=== PATIENT | female | born 1965 | race Caucasian/White ===

== ENCOUNTER 2025-02-28 19:04 | Emergency (ER) | payer MEDICAID, SELFPAY ==
[2025-02-28 19:06] VITALS: BMI 26.2
[2025-02-28 19:37] VITALS: BP 150/91; PULSE 77; RESP 16; TEMP 36.6; O2SAT 96
--- NOTE | 2025-02-28 19:54 | PD.EDBACK ---
ED Back Injury Pain RME/HPI General Chief Complaint: Back Pain/Injury Stated Complaint: CHRONIC BACK PAIN Time Seen by Provider: 02/28/25 19:48 Arrival date/time: 02/28/25 19:04 59F with history of chronic back pain due to OA presents to ED needing med refill. Patient tried to see her doctor, but he is on vacation. Patient takes [place] 10/325 BID. Related Data Home Medications ?Medication ?Instructions ?Recorded ?Confirmed Hydrocodone/Acetaminophen * (NORCO 1 tab PO Q6H PRN PAIN #0 tabs 09/04/14 10/325 *) ibuprofen 600 mg tablet 600 mg PO Q8HR PRN PAIN #0 tabs 09/04/14 loratadine 10 mg tablet (Claritin) 10 mg PO QDAY #0 tabs 09/04/14 lorazepam 1 mg tablet 1 mg PO Anxiety #0 tabs 09/04/14 Previous Rx's ?Medication ?Instructions ?Recorded alprazolam 0.5 mg tablet (Xanax) 0.5 mg PO QHSPRN PRN anxiety #10 10/05/18 tabs loratadine 10 mg tablet (Claritin) 10 mg PO QDAY PRN allergy symptoms 10/05/18 #30 tabs venlafaxine 75 mg capsule,extended 75 mg PO QDAY #30 caps 10/05/18 release 24 hr hydrocodone 10 mg-acetaminophen 1 tab PO BID PRN pain #7 tabs 02/28/25 325 mg tablet Allergies Allergy/AdvReac Type Severity Reaction Status Date / Time NKA* Allergy Uncoded 02/28/25 19:10 Review of Systems Review of Systems Systems Reviewed: All systems reviewed, normal except as documented Constitutional Constitutional: Reports system reviewed and no additional complaints, except as documented, Denies fever(s) and Denies headache(s) ENT Ears, Nose, Mouth, and Throat: Denies disequilibrium and Denies headache(s) Cardiovascular Cardiovascular: Reports system reviewed and no additional complaints, except as documented, Denies chest pain and Denies dyspnea Respiratory Respiratory: Reports system reviewed and no additional complaints, except as documented, Denies cough and Denies dyspnea Gastrointestinal Gastrointestinal: Reports system reviewed and no additional complaints, except as documented, Denies abdominal pain, Denies nausea and Denies vomiting Musculoskeletal Musculoskeletal: Reports as per HPI and Reports back pain Neurologic Neurologic: Reports system reviewed and no additional complaints, except as documented, Denies confusion, Denies disequilibrium and Denies headache(s) Psychiatric Psychiatric: Denies confusion Past Medical History Social History SMOKING STATUS: Never smoker ED Exam General General appearance: Present alert and in no apparent distress Head Head exam: Present atraumatic Eye Eye exam: Present normal appearance, PERRL and EOMI ENT ENT exam: Present normal exam, normal oropharynx and mucous membranes moist Neck Neck exam: Present normal inspection, full ROM and trachea midline Chest Chest inspection: Present normal inspection and symmetric chest wall rise Respiratory Respiratory exam: Present normal lung sounds bilaterally Cardiovascular Cardiovascular exam: Present regular rate, normal rhythm and normal heart sounds Abdominal Exam Abdominal exam: Present soft and normal bowel sounds Extremities Exam Extremities exam: Present normal inspection and full ROM Back Exam Back exam: Present normal inspection and full ROM Neurological Exam Neurological exam: Present alert, oriented X3 and CN II-XII intact Psychiatric Psychiatric exam: Present normal affect and normal mood Skin Skin exam: Present warm, dry, intact and normal color Course Quality Measures none Orders Category Date Time Status HYDROcodone/APAP 10/325 [[place] 10/325] Med 02/28/25 19:48 Discontinued 1 tab PO X1 ONE Vital Signs Vital signs: Vital Signs Temperature 98 F 02/28/25 19:37 Pulse Rate 77 02/28/25 19:37 Respiratory Rate 16 02/28/25 19:37 Blood Pressure 150/91 H 02/28/25 19:37 Pulse Oximetry (%) 96 02/28/25 19:37 Oxygen Delivery Method Room Air 02/28/25 19:37 O2 at 96% on RA and WNLs Back Pain / Injury MDM Narrative MDM Narrative:: 59F with history of chronic back pain due to OA presents to ED needing med refill. Patient tried to see her doctor, but he is on vacation. Patient takes [place] 10/325 BID. Physical exam reveals well-appearing female. Gait normal. Speech normal. Patient is afebrile, calm, and alert. Chart review shows on previous ED visit for this, as well as multiple PT sessions. Meds and public relations counselor given. Will give short supply until Tuesday. Patient data External records reviewed:: [facility] previous records Clinical information provided by:: patient Social determinants that could affect healthcare access:: none Patient has the following chronic illnesses:: chronic back pain How is presenting disease/condition affected by chronic disease/condition?: caused by Evaluation data The following diagnostics were reviewed and interpreted by me:: other (specify) (none) Lab and/or radiology exams considered but not ordered:: not ordered Interpretation Summary: n/a Medications / Prescriptions Medications or Prescriptions considered but not ordered:: ordered Medication administrations:: Medication Administration History Discontinued Medications Hydrocodone Bitart/Acetaminophen (Hydrocodone/[place] 10/325 Tab) 1 tab PO X1 ONE Stop: 02/28/25 19:49 above Consultations Consultation(s) initiated? (list below): No Diagnosis Differential diagnosis back pain/injury: lumbar radiculopathy, sciatica, strain of lumbar region, renal colic, pyelonephritis, thoracic back pain, AAA, discitis and other (chronic back pain) Most likely diagnosis given after review of the tests above:: chronic back pain Admission Indicated Admission indicated?: not indicated Admission Request Was there a request for admission?: No Disposition Plan Disposition Plan: Discharge Discharge Attestation Discharge Attestation: The patient and all family members were given an opportunity to ask questions and understood the discharge instructions. Discharge instructions specifically effects, indications for sooner follow up or return to the emergency department, and the expected course of current diagnosis. Patient condition: Stable Discharge Plan Plan Patient Disposition: HOME (Self Care) Discharge Disposition comment: Stable Prescriptions/Referrals Prescriptions/Med Rec: New hydrocodone-acetaminophen 10-325 mg tablet 1 tab PO BID MDD 2 PRN (Reason: pain) Qty: 7 0RF No Action lorazepam 1 MG tablet 1 mg PO Qty: 0 ibuprofen 600 MG tablet 600 mg PO Q8HR PRN (Reason: PAIN) Qty: 0 loratadine [Claritin] 10 MG tablet 10 mg PO QDAY Qty: 0 Hydrocodone/Acetaminophen * ([place] 10/325 *) 1 TAB tablet 1 tab PO Q6H PRN (Reason: PAIN) Qty: 0 loratadine [Claritin] 10 mg tablet 10 mg PO QDAY PRN (Reason: allergy symptoms) Qty: 30 0RF venlafaxine 75 mg capsule,extended release 24hr 75 mg PO QDAY Qty: 30 0RF alprazolam [Xanax] 0.5 mg tablet 0.5 mg PO QHSPRN PRN (Reason: anxiety) Qty: 10 0RF Problem List Clinical Impression: Chronic back pain, Medication refill Patient/Caregiver Discharge Instructions Education Materials: ED Back Pain (Acute or Chronic) Additional Instructions: Please follow-up with PCP within 24-48 hours and return immediately if symptoms worsen. Print Language: Maltese Stand Alone Forms: Patient Portal Info Letter JACKSON/JENNIFER Supervising Physician JACKSON/JENNIFER Supervising Physician: Dr. Cool
== END 2025-02-28 20:19 | disposition home or self-care (01) ==
LOC: SERX 20:13
PROVIDERS: Emergency Provider Emergency Medicine
DX: Z76.0 Encounter for issue of repeat prescription (principal); M47.819 Spondylosis without myelopathy or radiculopathy, site unspecified
CPT/HCPCS: 99282; A9270

== ENCOUNTER 2025-03-04 18:18 | Emergency (ER) | payer MEDICAID, SELFPAY ==
[2025-03-04 18:18] VITALS: BMI 26.2
[2025-03-04 18:31] VITALS: BP 140/82; PULSE 80; RESP 18; TEMP 36.6; O2SAT 98
--- NOTE | 2025-03-04 18:48 | EDNOTE_ITS ---
ED General RME/HPI General Chief complaint: General Adult/Misc Complain Stated complaint: JOSES DOMENICA PRESCRIPTION Time Seen by Provider: 03/04/25 18:45 Arrival date/time: 03/04/25 18:18 This is a case of 59-year-old female with history of chronic low back pain came in in the emergency room for medication refill of the [place] patient will see his primary care physician this week for further evaluation of her chronic low back pain patient denies any numbness weakness tingling sensation or incontinence to urine or stool denies any pain on both lower extremities Related Data Home Medications ?Medication ?Instructions ?Recorded ?Confirmed Hydrocodone/Acetaminophen * ([place] 1 tab PO Q6H PRN PA IN #0 tabs 09/04/14 10/325 *) ibuprofen 600 mg tablet 600 mg PO Q8HR PRN PAIN #0 t abs 09/04/14 loratadine 10 mg tablet (Claritin) 10 mg PO QDAY #0 ta bs 09/04/14 lorazepam 1 mg tablet 1 mg PO Anxiety #0 tabs 10/16 Previous Rx's ?Medication ?Instructions ?Recorded alprazolam 0.5 mg tablet (Xanax) 0.5 mg PO QHSPRN PRN anxiety #10 10/05/18 tabs loratadine 10 mg tablet (Claritin) 10 mg PO QDAY PRN a llergy symptoms 10/05/18 #30 tabs venlafaxine 75 mg capsule,extended 75 mg PO QDAY #30 c aps 10/05/18 release 24 hr hydrocodone 10 mg-acetaminophen 1 tab PO BID PRN pain #7 tabs 02/28/25 325 mg tablet hydrocodone 5 mg-acetaminophen 325 1 tab PO Q6H PRN pa in #8 tabs 03/04/25 mg tablet Allergies Allergy/AdvReac Type Severity Reaction Status Date / Time No Known Allergies Allergy Verified 03/04/25 18:20 Course Vital Signs Vital signs: Vital Signs Temperature 98 F 03/04/25 18:31 Pulse Rate 80 03/04/25 18:31 Respiratory Rate 18 03/04/25 18:31 Blood Pressure 140/82 H 03/04/25 18:31 Pulse Oximetry (%) 98 03/04/25 18:31 Oxygen Delivery Method Room Air 03/04/25 18:31 Discharge Plan Plan Patient Disposition: HOME (Self Care) Patient condition on transfer: Stable Prescriptions/Referrals Prescriptions/Med Rec: New hydrocodone-acetaminophen 5-325 mg tablet 1 tab PO Q6H MDD max 4 tabs per day PRN (Reason: pain) Qty: 8 0RF No Action lorazepam 1 MG tablet 1 mg PO Qty: 0 ibuprofen 600 MG tablet 600 mg PO Q8HR PRN (Reason: PAIN) Qty: 0 loratadine [Claritin] 10 MG tablet 10 mg PO QDAY Qty: 0 Hydrocodone/Acetaminophen * ([place] 10/325 *) 1 TAB tablet 1 tab PO Q6H PRN (Reason: PAIN) Qty: 0 loratadine [Claritin] 10 mg tablet 10 mg PO QDAY PRN (Reason: allergy symptoms) Qty: 30 0RF venlafaxine 75 mg capsule,extended release 24hr 75 mg PO QDAY Qty: 30 0RF alprazolam [Xanax] 0.5 mg tablet 0.5 mg PO QHSPRN PRN (Reason: anxiety) Qty: 10 0RF hydrocodone-acetaminophen 10-325 mg tablet 1 tab PO BID MDD 2 PRN (Reason: pain) Qty: 7 0RF Problem List Clinical Impression: Medication refill, Chronic bilateral low back pain Patient/Caregiver Discharge Instructions Education Materials: ED Back Pain (Acute or Chronic), ED Chronic Pain Additional Instructions: Follow-up with your primary care physician in 2 days for reevaluation and to be referred to neurosurgeon for chronic low back pain and to be referred to pain management doctor for pain control recurrence persistent worsening symptoms or any emergent concerns such as numbness weakness tingling sensation incontinence to urine or stool call 911 or go to the nearest emergency room take your medication as directed ice pack and warm compress as needed for pain Print Language: Mongolian Stand Alone Forms: Annabella Award Info., Patient Portal Info Letter PA/WAREHOUSE DISTRIBUTION SPECIALIST Supervising Physician PA/WAREHOUSE DISTRIBUTION SPECIALIST Supervising Physician: dr owens
[2025-03-04] MEDS: HYDROcodone/APAP 5/325 TABLET 1 TAB PO (18:54)
== END 2025-03-04 19:19 | disposition home or self-care (01) ==
LOC: SERX 18:56
PROVIDERS: Emergency Provider Emergency Medicine
DX: Z76.0 Encounter for issue of repeat prescription (principal); M54.50 Low back pain, unspecified; G89.29 Other chronic pain
CPT/HCPCS: 99283; A9270

== ENCOUNTER 2025-03-08 18:49 | Emergency (ER) | payer MEDICAID, SELFPAY ==
[2025-03-08 20:10] VITALS: BP 130/81; PULSE 77; RESP 18; TEMP 36.6; O2SAT 95; BMI 26.2
--- NOTE | 2025-03-08 22:39 | EDNOTE_ITS ---
ED Recheck Abnl Lab Rx-RME/HPI General Chief Complaint: General Adult/Misc Complain Stated Complaint: MED REFILL FOR [place] Time Seen by Provider: 03/08/25 20:30 Arrival date/time: 03/08/25 18:49 59F with history of chronic back pain due to OA presents to ED needing med refill. Patient tried to see her doctor, but he is on vacation. Patient takes [place] 10/325 BID. This patient's 3rd trip for this recently. Limitations: no limitations Related Data Home Medications ?Medication ?Instructions ?Recorded ?Confirmed Hydrocodone/Acetaminophen * ([place] 1 tab PO Q6H PRN PA IN #0 tabs 09/04/14 10/325 *) ibuprofen 600 mg tablet 600 mg PO Q8HR PRN PAIN #0 t abs 09/04/14 loratadine 10 mg tablet (Claritin) 10 mg PO QDAY #0 ta bs 09/04/14 lorazepam 1 mg tablet 1 mg PO Anxiety #0 tabs 10/16 Previous Rx's ?Medication ?Instructions ?Recorded alprazolam 0.5 mg tablet (Xanax) 0.5 mg PO QHSPRN PRN anxiety #10 10/05/18 tabs loratadine 10 mg tablet (Claritin) 10 mg PO QDAY PRN a llergy symptoms 10/05/18 #30 tabs venlafaxine 75 mg capsule,extended 75 mg PO QDAY #30 c aps 10/05/18 release 24 hr hydrocodone 10 mg-acetaminophen 1 tab PO BID PRN pain #7 tabs 02/28/25 325 mg tablet hydrocodone 5 mg-acetaminophen 325 1 tab PO Q6H PRN pa in #8 tabs 03/04/25 mg tablet hydrocodone 5 mg-acetaminophen 325 1 tab PO QDAY PRN p ain #10 tabs 03/08/25 mg tablet Allergies Allergy/AdvReac Type Severity Reaction Status Date / Time No Known Allergies Allergy Verified 03/08/25 18:51 Review of Systems Review of Systems Systems Reviewed: All systems reviewed, normal except as documented Constitutional Constitutional: Reports system reviewed and no additional complaints, except as documented, Denies fever(s) and Denies headache(s) ENT Ears, Nose, Mouth, and Throat: Denies disequilibrium and Denies headache(s) Cardiovascular Cardiovascular: Reports system reviewed and no additional complaints, except as documented, Denies chest pain and Denies dyspnea Respiratory Respiratory: Reports system reviewed and no additional complaints, except as documented, Denies cough and Denies dyspnea Gastrointestinal Gastrointestinal: Reports system reviewed and no additional complaints, except as documented, Denies abdominal pain, Denies nausea and Denies vomiting Musculoskeletal Musculoskeletal: Reports as per HPI and Reports back pain Neurologic Neurologic: Reports system reviewed and no additional complaints, except as documented, Denies confusion, Denies disequilibrium and Denies headache(s) Psychiatric Psychiatric: Denies confusion Past Medical History Social History SMOKING STATUS: Never smoker ED Exam General Limitations: Present no limitations General appearance: Present alert and in no apparent distress Head Head exam: Present atraumatic ENT ENT exam: Present normal exam, normal oropharynx and mucous membranes moist Neck Neck exam: Present normal inspection, full ROM and trachea midline Chest Chest inspection: Present normal inspection and symmetric chest wall rise Extremities Exam Extremities exam: Present normal inspection and full ROM Back Exam Back exam: Present normal inspection and full ROM Neurological Exam Neurological exam: Present alert, oriented X3 and CN II-XII intact Course Quality Measures none Vital Signs Vital signs: Vital Signs Temperature 97.9 F 03/08/25 20:10 Pulse Rate 77 03/08/25 20:10 Respiratory Rate 18 03/08/25 20:10 Blood Pressure 130/81 03/08/25 20:10 Pulse Oximetry (%) 95 03/08/25 20:10 Oxygen Delivery Method Room Air 03/08/25 20:10 O2 at 95% on RA and WNLs Recheck / Abnormal Lab / Rx MDM Narrative MDM Narrative:: 59F with history of chronic back pain due to OA presents to ED needing med refill. Patient tried to see her doctor, but he is on vacation. Patient takes [place] 10/325 BID. This patient's 3rd trip for this recently. Physical exam reveals mildly frustrated female. Gait normal. Speech normal. Patient is afebrile, calm, and alert. Automatic Spreader Operator given. Will give short supply. Patient data External records reviewed:: [facility] previous records Clinical information provided by:: patient Social determinants that could affect healthcare access:: none Patient has the following chronic illnesses:: chronic back pain How is presenting disease/condition affected by chronic disease/condition?: exacerbated by Evaluation data The following diagnostics were reviewed and interpreted by me:: other (specify) (none) Lab and/or radiology exams considered but not ordered:: not ordered Interpretation Summary: n/a Medications / Prescriptions Medications or Prescriptions considered but not ordered:: not ordered Medication administrations:: n/a Consultations Consultation(s) initiated? (list below): No Diagnosis Recheck Differential Diagnosis: encounter for medication refill, encounter for wound recheck, encounter for recheck of burn, encounter for removal of sutures, warfarin-induced coagulopathy and other (chronic back pain) Most likely diagnosis given after review of the tests above:: chronic back pain Admission Indicated Admission indicated?: not indicated Admission Request Was there a request for admission?: No Disposition Plan Disposition Plan: Discharge Discharge Attestation Discharge Attestation: The patient and all family members were given an opportunity to ask questions and understood the discharge instructions. Discharge instructions specifically effects, indications for sooner follow up or return to the emergency department, and the expected course of current diagnosis. Patient condition: Stable Discharge Plan Plan Patient Disposition: HOME (Self Care) Discharge Disposition comment: Stable Prescriptions/Referrals Prescriptions/Med Rec: New hydrocodone-acetaminophen 5-325 mg tablet 1 tab PO QDAY MDD 1 PRN (Reason: pain) Qty: 10 0RF No Action lorazepam 1 MG tablet 1 mg PO Qty: 0 ibuprofen 600 MG tablet 600 mg PO Q8HR PRN (Reason: PAIN) Qty: 0 loratadine [Claritin] 10 MG tablet 10 mg PO QDAY Qty: 0 Hydrocodone/Acetaminophen * ([place] 10/325 *) 1 TAB tablet 1 tab PO Q6H PRN (Reason: PAIN) Qty: 0 loratadine [Claritin] 10 mg tablet 10 mg PO QDAY PRN (Reason: allergy symptoms) Qty: 30 0RF venlafaxine 75 mg capsule,extended release 24hr 75 mg PO QDAY Qty: 30 0RF alprazolam [Xanax] 0.5 mg tablet 0.5 mg PO QHSPRN PRN (Reason: anxiety) Qty: 10 0RF hydrocodone-acetaminophen 10-325 mg tablet 1 tab PO BID MDD 2 PRN (Reason: pain) Qty: 7 0RF hydrocodone-acetaminophen 5-325 mg tablet 1 tab PO Q6H MDD max 4 tabs per day PRN (Reason: pain) Qty: 8 0RF Problem List Clinical Impression: Chronic bilateral low back pain Patient/Caregiver Discharge Instructions Education Materials: ED Chronic Pain Additional Instructions: Please follow-up with PCP within 24-48 hours and return immediately if symptoms worsen. Keep calling [facility] to see if you can get a sooner appointment. Try to take as few pills as possible. Print Language: Danish Stand Alone Forms: Patient Portal Info Letter PA/LYMPHEDEMA THERAPIST Supervising Physician PA/LYMPHEDEMA THERAPIST Supervising Physician: Dr. Carmichael
== END 2025-03-08 20:41 | disposition home or self-care (01) ==
PROVIDERS: Emergency Provider Emergency Medicine; PCP Family Medicine
DX: Z76.0 Encounter for issue of repeat prescription (principal); G89.29 Other chronic pain; M47.816 Spondylosis without myelopathy or radiculopathy, lumbar region
CPT/HCPCS: 99281

== ENCOUNTER 2025-03-13 16:12 | Emergency (ER) | payer MEDICAID, SELFPAY ==
[2025-03-13 16:13] VITALS: BMI 26.2
[2025-03-13 16:55] VITALS: BP 149/86; PULSE 67; RESP 18; TEMP 36.8; O2SAT 98
--- NOTE | 2025-03-13 17:06 | PD.EDADULT ---
ED General RME/HPI General Chief complaint: General Adult/Misc Complain Stated complaint: PRESCRIPTION REFILL Time Seen by Provider: 03/13/25 16:17 Arrival date/time: 03/13/25 16:12 59-year-old female with chronic back pain presents requesting refill of her [place] prescription patient reports that her physician is out of town until Tuesday Limitations: no limitations Related Data Home Medications ?Medication ?Instructions ?Recorded ?Confirmed Hydrocodone/Acetaminophen * ([place] 1 tab PO Q6H PRN PAIN #0 tabs 09/04/14 10/325 *) ibuprofen 600 mg tablet 600 mg PO Q8HR PRN PAIN #0 tabs 09/04/14 loratadine 10 mg tablet (Claritin) 10 mg PO QDAY #0 tabs 09/04/14 lorazepam 1 mg tablet 1 mg PO Anxiety #0 tabs 09/04/14 Previous Rx's ?Medication ?Instructions ?Recorded alprazolam 0.5 mg tablet (Xanax) 0.5 mg PO QHSPRN PRN anxiety #10 10/05/18 tabs loratadine 10 mg tablet (Claritin) 10 mg PO QDAY PRN allergy symptoms 10/05/18 #30 tabs venlafaxine 75 mg capsule,extended 75 mg PO QDAY #30 caps 10/05/18 release 24 hr hydrocodone 10 mg-acetaminophen 1 tab PO BID PRN pain #7 tabs 02/28/25 325 mg tablet hydrocodone 5 mg-acetaminophen 325 1 tab PO Q6H PRN pain #8 tabs 03/04/25 mg tablet hydrocodone 5 mg-acetaminophen 325 1 tab PO QDAY PRN pain #10 tabs 03/08/25 mg tablet hydrocodone 10 mg-acetaminophen 1 tab PO BID PRN pain 5 days #10 03/13/25 325 mg tablet tabs Allergies Allergy/AdvReac Type Severity Reaction Status Date / Time No Known Allergies Allergy Verified 03/13/25 16:16 Review of Systems Review of Systems Systems Reviewed: All systems reviewed, normal except as documented Constitutional Constitutional: Reports system reviewed and no additional complaints, except as documented, Denies fever(s) and Denies headache(s) Eyes Eyes: Reports system reviewed and no additional complaints, except as documented and Denies blurry vision ENT Ears, Nose, Mouth, and Throat: Reports system reviewed and no additional complaints, except as documented, Denies headache(s), Denies nasal congestion and Denies nasal discharge Cardiovascular Cardiovascular: Reports system reviewed and no additional complaints, except as documented, Denies chest pain and Denies dyspnea Respiratory Respiratory: Reports system reviewed and no additional complaints, except as documented, Denies chest congestion, Denies cough and Denies dyspnea Gastrointestinal Gastrointestinal: Reports system reviewed and no additional complaints, except as documented and Denies abdominal pain Musculoskeletal Musculoskeletal: Reports system reviewed and no additional complaints, except as documented and Reports back pain Integumentary/Breasts Skin/Breast: Reports system reviewed and no additional complaints, except as documented and Denies rash Neurologic Neurologic: Reports system reviewed and no additional complaints, except as documented, Reports as per HPI and Denies headache(s) Past Medical History Social History SMOKING STATUS: Never smoker ED Exam General Limitations: Present no limitations General appearance: Present alert and in no apparent distress Head Head exam: Present atraumatic Eye Eye exam: Present normal appearance, PERRL and EOMI ENT ENT exam: Present normal exam, normal oropharynx and mucous membranes moist Neck Neck exam: Present normal inspection, full ROM and trachea midline Chest Chest inspection: Present normal inspection and symmetric chest wall rise Respiratory Respiratory exam: Present normal lung sounds bilaterally Cardiovascular Cardiovascular exam: Present regular rate, normal rhythm and normal heart sounds Abdominal Exam Abdominal exam: Present soft and normal bowel sounds Extremities Exam Extremities exam: Present normal inspection and full ROM Back Exam Back exam: Present normal inspection, full ROM, tenderness, muscle spasm and paraspinal tenderness; Absent CVA tenderness (R) or CVA tenderness (L) Neurological Exam Neurological exam: Present alert, oriented X3, CN II-XII intact, normal gait and reflexes normal; Absent motor sensory deficit Psychiatric Psychiatric exam: Present normal affect and normal mood Skin Skin exam: Present warm, dry, intact and normal color Course Quality Measures none Vital Signs Vital signs: Vital Signs Temperature 98.2 F 03/13/25 16:55 Pulse Rate 67 03/13/25 16:55 Respiratory Rate 18 03/13/25 16:55 Blood Pressure 149/86 H 03/13/25 16:55 Pulse Oximetry (%) 98 03/13/25 16:55 Oxygen Delivery Method Room Air 03/13/25 16:55 O2 saturation 98% room air within normal limits Discharge Plan Plan Patient Disposition: HOME (Self Care) Discharge Disposition comment: Stable Prescriptions/Referrals Prescriptions/Med Rec: New hydrocodone-acetaminophen 10-325 mg tablet 1 tab PO BID MDD 10mg PRN (Reason: pain) 5 Days Qty: 10 0RF No Action lorazepam 1 MG tablet 1 mg PO Qty: 0 ibuprofen 600 MG tablet 600 mg PO Q8HR PRN (Reason: PAIN) Qty: 0 loratadine [Claritin] 10 MG tablet 10 mg PO QDAY Qty: 0 Hydrocodone/Acetaminophen * ([place]CO 10/325 *) 1 TAB tablet 1 tab PO Q6H PRN (Reason: PAIN) Qty: 0 loratadine [Claritin] 10 mg tablet 10 mg PO QDAY PRN (Reason: allergy symptoms) Qty: 30 0RF venlafaxine 75 mg capsule,extended release 24hr 75 mg PO QDAY Qty: 30 0RF alprazolam [Xanax] 0.5 mg tablet 0.5 mg PO QHSPRN PRN (Reason: anxiety) Qty: 10 0RF hydrocodone-acetaminophen 10-325 mg tablet 1 tab PO BID MDD 2 PRN (Reason: pain) Qty: 7 0RF hydrocodone-acetaminophen 5-325 mg tablet 1 tab PO QDAY MDD 1 PRN (Reason: pain) Qty: 10 0RF hydrocodone-acetaminophen 5-325 mg tablet 1 tab PO Q6H MDD max 4 tabs per day PRN (Reason: pain) Qty: 8 0RF Referrals: Neel Alexander MD [Primary Care Provider, Family Practice] - In 1 week Problem List Clinical Impression: Back pain Patient/Caregiver Discharge Instructions Education Materials: Anatomy of a Normal Spine Additional Instructions: I spoke with your primary care doctor I will keep you enough medication to last until Tuesday you must follow-up with your PCP on Tuesday for further evaluation and treatment Print Language: Bangladeshi Stand Alone Forms: Annabella Award Info., Patient Portal Info Letter PA/MANAGER INTEGRATED Supervising Physician PA/MANAGER INTEGRATED Supervising Physician: Dr. joslyn GAMEZ Narrative [facility] hospital course: 59-year-old female with chronic back pain presents requesting refill of her [place] prescription patient reports that her physician is out of town until Tuesday On exam patient well-appearing patient's not appear toxic no acute distress Patient walks with steady gait has no abnormal neurological findings patient ports no saddle anesthesia no loss of bowel or bladder Consultation: I spoke with patient's primary care physician Dr. Alexander states he will be in his office on Tuesday Explained to the patient that this is not the right modality to get her medications refilled and in the future she must see her primary care doctor. Clinical Information Provided by patient Medical Records Reviewed [facility] Meds/Rx Considered, not Ordered Describe details: Ordered Labs/Rad/Tests considered, not Ordered None Chronic Illness/Social Conditions which may negatively complicate care or outcome(s)-explain: None or not applicable EKG EKG not done Lab Interpretation Labs: none Imaging Imaging interpretation: none Medication Administration(s) none Diagnosis Differential diagnosis: Medication refill, chronic back pain Differential dx and/or dx ruled out: Chronic back pain Most likely dx, and/or detailed dx discussion: Chronic back pain Dispositon Disposition: Discharge Home
== END 2025-03-13 17:09 | disposition home or self-care (01) ==
PROVIDERS: Emergency Provider Emergency Medicine; PCP Family Medicine
DX: Z76.0 Encounter for issue of repeat prescription (principal); M54.9 Dorsalgia, unspecified; G89.29 Other chronic pain
CPT/HCPCS: 99281

== ENCOUNTER 2025-04-11 19:36 | Emergency (ER) | payer MEDICAID, SELFPAY ==
[2025-04-11 19:37] VITALS: BMI 27.2
[2025-04-11 20:09] VITALS: BP 151/83; PULSE 68; RESP 18; TEMP 36.6; O2SAT 96
--- NOTE | 2025-04-11 20:38 | XR_ITS ---
EXAMINATION: Left wrist 2 views TECHNIQUE: AP lateral left wrist 2 views Date and time: April 11, 2025, 2041 hours INDICATIONS: Patient fell last week with into the wrist, wrist pain. FINDINGS: Acute nondisplaced fracture distal radial metaphysis Carpal bones intact IMPRESSION: Acute nondisplaced fracture distal radial metaphysis
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
--- NOTE | 2025-04-11 23:00 | PC.NURSE ---
called for pt from lobby/outside,no [id number]@ [id number]
--- NOTE | 2025-04-11 23:38 | PC.NURSE ---
NA FROM [facility]
--- NOTE | 2025-04-11 23:44 | PC.NURSE ---
NA FROM [facility]
== END 2025-04-11 23:45 | disposition left against medical advice (07) ==
PROVIDERS: Emergency Provider Emergency Medicine
DX: S52.502A Unspecified fracture of the lower end of left radius, initial encounter for closed fracture (principal); V29.99XA Rider (driver) (passenger) of other motorcycle injured in unspecified traffic accident, initial encounter
CPT/HCPCS: 73100; 99283; A9270

== ENCOUNTER 2025-04-12 11:15 | Emergency (ER) | payer MEDICAID, SELFPAY ==
[2025-04-12 11:22] VITALS: BP 156/87; PULSE 75; RESP 16; TEMP 36.7; O2SAT 98; BMI 26.6
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
--- NOTE | 2025-04-12 11:43 | PC.NURSE ---
SPLINT PLACED BY PROVIDER
== END 2025-04-12 12:31 | disposition home or self-care (01) ==
PROVIDERS: Emergency Provider Family Medicine; PCP Family Medicine
DX: S52.502A Unspecified fracture of the lower end of left radius, initial encounter for closed fracture (principal); W19.XXXA Unspecified fall, initial encounter
CPT/HCPCS: 29125; 99284; A9270

== ENCOUNTER 2025-05-09 07:43 | Emergency (ER) | payer MEDICAID, SELFPAY ==
[2025-05-09 07:43] VITALS: BMI 26.2
[2025-05-09 07:53] VITALS: BP 143/94; PULSE 78; RESP 19; TEMP 36.5; O2SAT 97
--- NOTE | 2025-05-09 07:58 | PD.EDUPEX ---
Upper Extremity Injury RME/HPI General Chief Complaint: General Adult/Misc Complain Stated Complaint: WANTS PRESCRIPTION FOR BROKEN WRIST Time Seen by Provider: 05/09/25 07:48 Arrival date/time: 05/09/25 07:43 58-year-old female recent history of left wrist fracture presents to the emerged from today requesting pain medication patient reports no numbness or tingling reports she needs medication until she sees her PCP Limitations: no limitations Related Data Home Medications ?Medication ?Instructions ?Recorded ?Confirmed Hydrocodone/Acetaminophen * (NORCO 1 tab PO Q6H PRN PAIN #0 tabs 09/04/14 10/325 *) ibuprofen 600 mg tablet 600 mg PO Q8HR PRN PAIN #0 tabs 09/04/14 loratadine 10 mg tablet (Claritin) 10 mg PO QDAY #0 tabs 09/04/14 lorazepam 1 mg tablet 1 mg PO Anxiety #0 tabs 09/04/14 Previous Rx's ?Medication ?Instructions ?Recorded alprazolam 0.5 mg tablet (Xanax) 0.5 mg PO QHSPRN PRN anxiety #10 10/05/18 tabs loratadine 10 mg tablet (Claritin) 10 mg PO QDAY PRN allergy symptoms 10/05/18 #30 tabs venlafaxine 75 mg capsule,extended 75 mg PO QDAY #30 caps 10/05/18 release 24 hr hydrocodone 10 mg-acetaminophen 1 tab PO BID PRN pain #7 tabs 02/28/25 325 mg tablet hydrocodone 5 mg-acetaminophen 325 1 tab PO Q6H PRN pain #8 tabs 03/04/25 mg tablet hydrocodone 5 mg-acetaminophen 325 1 tab PO QDAY PRN pain #10 tabs 03/08/25 mg tablet hydrocodone 5 mg-acetaminophen 325 1 tab PO BID PRN pain #10 tabs 05/09/25 mg tablet Allergies Allergy/AdvReac Type Severity Reaction Status Date / Time No Known Allergies Allergy Verified 05/09/25 07:45 Review of Systems Review of Systems Systems Reviewed: All systems reviewed, normal except as documented Constitutional Constitutional: Reports system reviewed and no additional complaints, except as documented, Denies fever(s) and Denies headache(s) Eyes Eyes: Reports system reviewed and no additional complaints, except as documented and Denies blurry vision ENT Ears, Nose, Mouth, and Throat: Reports system reviewed and no additional complaints, except as documented, Denies headache(s), Denies nasal congestion and Denies nasal discharge Cardiovascular Cardiovascular: Reports system reviewed and no additional complaints, except as documented, Denies chest pain and Denies dyspnea Respiratory Respiratory: Reports system reviewed and no additional complaints, except as documented, Denies chest congestion, Denies cough and Denies dyspnea Gastrointestinal Gastrointestinal: Reports system reviewed and no additional complaints, except as documented and Denies abdominal pain Musculoskeletal Musculoskeletal: Reports system reviewed and no additional complaints, except as documented, Reports arthralgias, Denies deformity, Denies numbness, Reports stiffness and Denies tingling Integumentary/Breasts Skin/Breast: Reports system reviewed and no additional complaints, except as documented and Denies rash Neurologic Neurologic: Reports system reviewed and no additional complaints, except as documented, Reports as per HPI, Denies headache(s), Denies numbness and Denies tingling Past Medical History Social History SMOKING STATUS: Never smoker ED Exam General Limitations: Present no limitations General appearance: Present alert and in no apparent distress Head Head exam: Present atraumatic, normocephalic and normal inspection Eye Eye exam: Present normal appearance, PERRL and EOMI; Absent conjunctival injection ENT ENT exam: Present normal exam, normal oropharynx and mucous membranes moist Neck Neck exam: Present normal inspection, full ROM and trachea midline Chest Chest inspection: Present normal inspection and symmetric chest wall rise Respiratory Respiratory exam: Present normal lung sounds bilaterally Cardiovascular Cardiovascular exam: Present regular rate, normal rhythm and normal heart sounds Abdominal Exam Abdominal exam: Present soft and normal bowel sounds Extremities Exam Extremities exam: Present normal inspection, full ROM, tenderness (Left wrist pain) and normal capillary refill; Absent joint swelling Back Exam Back exam: Present normal inspection and full ROM Neurological Exam Neurological exam: Present alert, oriented X3 and CN II-XII intact Psychiatric Psychiatric exam: Present normal affect and normal mood Skin Skin exam: Present warm, dry, intact and normal color Course Quality Measures none Orders Category Date Time Status HYDROcodone*/APAP 5/325 [[place] 5/325] Med 05/09/25 07:59 Discontinued 1 tab PO X1 ONE Vital Signs Vital signs: Vital Signs Temperature 97.7 F 05/09/25 07:53 Pulse Rate 78 05/09/25 07:53 Respiratory Rate 19 05/09/25 07:53 Blood Pressure 143/94 H 05/09/25 07:53 Pulse Oximetry (%) 97 05/09/25 07:53 Oxygen Delivery Method Room Air 05/09/25 07:53 O2 saturation 97% room air within normal limits Extremity Injury MDM Narrative MDM Narrative:: 58-year-old female recent history of left wrist fracture presents to the emerged from today requesting pain medication patient reports no numbness or tingling reports she needs medication until she sees her PCP On exam patient well-appearing patient does not appear toxic acute distress Patient given short prescription of pain medication and dose of medication here Patient discharged home in no distress to follow-up with primary care doctor in the next 24 to 48 hours and for any worsening symptoms to return to the ER immediately Patient data External records reviewed:: [facility] previous records Clinical information provided by:: patient Social determinants that could affect healthcare access:: none Patient has the following chronic illnesses:: None How is presenting disease/condition affected by chronic disease/condition?: no chronic disease Evaluation data The following diagnostics were reviewed and interpreted by me:: radiology exam(s) Lab and/or radiology exams considered but not ordered:: Radiology obtain Interpretation Summary: Reviewed by me Medications / Prescriptions Medications or Prescriptions considered but not ordered:: Given Medication administrations:: Medication Administration History Discontinued Medications Hydrocodone Bitart/Acetaminophen (Hydrocodone/Apap 5/325 Tablet) 1 tab PO X1 ONE Stop: 05/09/25 08:00 Last Admin: 05/09/25 08:07 Dose: 1 tab Documented By: KM Given Consultations Consultation(s) initiated? (list below): No Diagnosis Upper Extremity Injury Differential Diagnosis: sprain and strain of wrist and fracture of wrist Most likely diagnosis given after review of the tests above:: Wrist fracture, pain management Admission Indicated Admission indicated?: not indicated Admission Request Was there a request for admission?: No Disposition Plan Disposition Plan: Discharge Discharge Attestation Discharge Attestation: The patient and all family members were given an opportunity to ask questions and understood the discharge instructions. Discharge instructions specifically effects, indications for sooner follow up or return to the emergency department, and the expected course of current diagnosis. Patient condition: Stable Discharge Plan Plan Patient Disposition: HOME (Self Care) Discharge Disposition comment: Stable Prescriptions/Referrals Prescriptions/Med Rec: New hydrocodone-acetaminophen 5-325 mg tablet 1 tab PO BID MDD 10 PRN (Reason: pain) Qty: 10 0RF No Action lorazepam 1 MG tablet 1 mg PO Qty: 0 ibuprofen 600 MG tablet 600 mg PO Q8HR PRN (Reason: PAIN) Qty: 0 loratadine [Claritin] 10 MG tablet 10 mg PO QDAY Qty: 0 Hydrocodone/Acetaminophen * (NORCO 10/325 *) 1 TAB tablet 1 tab PO Q6H PRN (Reason: PAIN) Qty: 0 loratadine [Claritin] 10 mg tablet 10 mg PO QDAY PRN (Reason: allergy symptoms) Qty: 30 0RF venlafaxine 75 mg capsule,extended release 24hr 75 mg PO QDAY Qty: 30 0RF alprazolam [Xanax] 0.5 mg tablet 0.5 mg PO QHSPRN PRN (Reason: anxiety) Qty: 10 0RF hydrocodone-acetaminophen 10-325 mg tablet 1 tab PO BID MDD 2 PRN (Reason: pain) Qty: 7 0RF hydrocodone-acetaminophen 5-325 mg tablet 1 tab PO QDAY MDD 1 PRN (Reason: pain) Qty: 10 0RF hydrocodone-acetaminophen 5-325 mg tablet 1 tab PO Q6H MDD max 4 tabs per day PRN (Reason: pain) Qty: 8 0RF Problem List Clinical Impression: Distal radius fracture, left Patient/Caregiver Discharge Instructions Education Materials: Wrist Fracture Additional Instructions: My station Print Language: Greenlandic Stand Alone Forms: Annabella Award Info., Patient Portal Info Letter PA/BORE MILL OPERATOR Supervising Physician PA/BORE MILL OPERATOR Supervising Physician: dr deng
[2025-05-09] MEDS: HYDROcodone/APAP 5/325 TABLET 1 TAB PO (08:07)
== END 2025-05-09 08:11 | disposition home or self-care (01) ==
LOC: SERX 08:12
PROVIDERS: Emergency Provider Nurse Practitioner Primary Care; PCP Family Medicine
DX: Z76.0 Encounter for issue of repeat prescription (principal); S52.502D Unspecified fracture of the lower end of left radius, subsequent encounter for closed fracture with routine healing; X58.XXXD Exposure to other specified factors, subsequent encounter
CPT/HCPCS: 99281; A9270